=== PATIENT | female | born 1960 | race Caucasian/White ===

== ENCOUNTER 2022-07-14 16:51 | Outpatient (CLI) | payer BC, SELFPAY ==
--- NOTE | ~2022-07-14 | XR_ITS ---
EXAMINATION: XR lumbar spine min 4V, XR sacroiliac joints min 3V DATE: 07/14/2022 17:43 INDICATION: Arthropathic psoriasis TECHNIQUE: 1. Anteroposterior, lateral, and bilateral oblique views of the lumbar spine, and cone-down lateral v iew of the lumbosacral junction were obtained. 2. AP and left and right oblique views of the sacroiliac joints were obtained. COMPARISON: None. FINDINGS: Lumbar spine: 7 degrees lumbar dextrocurvature. Sagittal alignment is normal. Vertebral body heights are normal. Mi ld disc height loss at L3-L4 and L4-L5. No pars intra-articular is defects. Severe facet osteoarthrit is on the right at L3-L4 through L5-S1 and on the left at L3-L4 and L5-S1. Mild to moderate facet ost eoarthritis the remaining thoracic levels. Cholecystectomy clips in right upper quadrant. Suture line s in the right lower quadrant and in the pelvis. Sacroiliac joints: Mild osteoarthritis at the bilateral sacroiliac joints. No erosions to suggest inflammatory enteritis . Sacral arches are intact. Bilateral hip joint spaces are normal. Multiple phleboliths in the pelvis and right abdomen. A few described lesions project over the pelvis also likely represent bone island s. IMPRESSION: 1. Mild lumbar spondylosis. 2. Mild bilateral sacral iliac osteoarthritis without evident erosions to suggest an inflammatory sac roiliitis. Reviewed, dictated and finalized at location A. IMPRESSION: 1. Mild lumbar spondylosis. 2. Mild bilateral sacral iliac osteoarthritis without evident erosions to sugge st an inflammatory sacroiliitis.
--- NOTE | ~2022-07-14 | XR_ITS ---
EXAMINATION: HAND-DESTINEY ARTHRITIS 3+VIEWS DATE: 07/14/2022 17:43 INDICATION: Psoriatic arthropathy TECHNIQUE: Posteroanterior, lateral, and oblique views of the left and of the right hands as well as a ballcatchers view of both hands were obtained. COMPARISON: None. FINDINGS: No fractures. Bilateral increased scapholunate angles consistent with scapholunate ligament insuffici ency and dorsal intercalated segment instability (DISI). Similar pattern of moderate to severe osteoa rthritis at the bilateral radiocarpal and midcarpal joints consistent with secondary scapholunate adv anced collapse (SLAC) wrist. Radial subluxation and severe osteoarthritis at the right first interpha langeal joint. Alignment is otherwise normal at the bilateral hands. Additional prominent osteoarthri tis at the bilateral first carpometacarpal joints, severe on the right and moderate to severe on the left. Moderate osteoarthritis at the left first interphalangeal joint and mild osteoarthritis at the bilateral triscaphe and many of the remaining metacarpophalangeal and interphalangeal joints. No eros ions to suggest an inflammatory arthritis. IMPRESSION: 1. Polyarticular osteoarthritis as detailed above. This includes atypically severe osteoarthritis at the bilateral wrist and midcarpal joints likely related to scapholunate ligament insufficiency with d orsal intercalated segment instability (DISI) and secondary scapholunate advanced collapse (SLAC) wri st. Reviewed, dictated and finalized at location A. IMPRESSION: 1. Polyarticular osteoarthritis as detailed above. This includes atypically sev ere osteoarthritis at the bilateral wrist and midcarpal joints likely related t o scapholunate ligament insufficiency with dorsal intercalated segment instabil ity (DISI) and secondary scapholunate advanced collapse (SLAC) wrist.
--- NOTE | ~2022-07-14 | XR_ITS ---
EXAMINATION: XR foot RT standing 2V DATE: 07/14/2022 17:43 INDICATION: Arthropathic psoriasis TECHNIQUE: 1. Dorsoplantar and lateral views of the left foot were obtained. 2. Dorsoplantar and lateral views of the right foot were obtained. COMPARISON: None. FINDINGS: Normal alignment at the bilateral feet. No fractures. Typical pattern of polyarticular osteoarthritis at the bilateral feet, moderate severity at the right first tarsal metatarsal and left second tarsal metatarsal joint and mild at the bilateral first metatarsophalangeal, tibiotalar and many of the rem aining the lateral tarsal metatarsal and interphalangeal joints. No erosions to suggest inflammatory arthritis. IMPRESSION: 1. Relatively symmetric, typical pattern of mild to moderate polyarticular osteoarthritis at the bila teral feet and ankles. Reviewed, dictated and finalized at location A. IMPRESSION: 1. Relatively symmetric, typical pattern of mild to moderate polyarticular oste oarthritis at the bilateral feet and ankles.
--- NOTE | ~2022-07-14 | XR_ITS ---
EXAMINATION: XR foot LT standing 2V DATE: 07/14/2022 17:43 INDICATION: Arthropathic psoriasis TECHNIQUE: 1. Dorsoplantar and lateral views of the left foot were obtained. 2. Dorsoplantar and lateral views of the right foot were obtained. COMPARISON: None. FINDINGS: Normal alignment at the bilateral feet. No fractures. Typical pattern of polyarticular osteoarthritis at the bilateral feet, moderate severity at the right first tarsal metatarsal and left second tarsal metatarsal joint and mild at the bilateral first metatarsophalangeal, tibiotalar and many of the rem aining the lateral tarsal metatarsal and interphalangeal joints. No erosions to suggest inflammatory arthritis. IMPRESSION: 1. Relatively symmetric, typical pattern of mild to moderate polyarticular osteoarthritis at the bila teral feet and ankles. Reviewed, dictated and finalized at location A. IMPRESSION: 1. Relatively symmetric, typical pattern of mild to moderate polyarticular oste oarthritis at the bilateral feet and ankles.
== END 2022-07-14 16:52 | disposition home or self-care (01) ==
LOC: ANHIMG 16:54
PROVIDERS: PCP Internal Medicine; Visit Provider Internal Medicine
DX: L40.50 Arthropathic psoriasis, unspecified (principal); K51.90 Ulcerative colitis, unspecified, without complications; Z71.89 Other specified counseling; Z79.899 Other long term (current) drug therapy; Z11.59 Encounter for screening for other viral diseases; M47.896 Other spondylosis, lumbar region; M53.3 Sacrococcygeal disorders, not elsewhere classified; M19.071 Primary osteoarthritis, right ankle and foot; M19.072 Primary osteoarthritis, left ankle and foot; M19.041 Primary osteoarthritis, right hand; M19.042 Primary osteoarthritis, left hand
CPT/HCPCS: 72110; 72202; 73130; 73620